=== PATIENT | male | born 1960 | race Caucasian/White ===

== ENCOUNTER 2018-09-29 08:48 | Inpatient (IN) | payer SELFPAY ==
[2018-09-29 09:09] LABS: #Eosinphils 0.1 thou/uL (0.0-0.7); #Lymphocytes 1.2 thou/uL (1.20-3.40); #Monocytes 0.5 thou/uL (0.11-0.59); #Neutrophils 9.5 thou/uL (1.40-6.50); %Basophils 0.4 % (0.0-1.0); %Eosinophils 1.2 % (0.0-10.0); %Lymphocytes 10.7 % (21.0-51.0); %Monocytes 4.4 % (0.0-10.0); %Neutrophils 83.4 % (42.0-75.0); Hemoglobin 14.9 g/dL (14.0-18.0); Mean Corpuscular Hemoglobin 30.8 pg (27.0-31.0); Mean Corpuscular Volume 96.2 fL (78.0-98.0); Mean Platelet Volume 8.3 fL (7.4-10.4); Platelet Count 152 thou/uL (130-400); RBC Distribution Width 12.5 % (11.5-14.5); Red Blood Cell (RBC) Count 4.83 mill/uL (4.70-6.10); White Blood Cell (WBC) Count 11.4 thou/uL (4.8-10.8)
[2018-09-29 09:19] LABS: PTT 25.9 SEC (22.9-36.1); Prothrombin Time 12.9 SEC (12.0-14.7)
--- NOTE | 2018-09-29 09:20 | CT ---
CT OF BRAIN PERFORMED WITHOUT CONTRAST ENHANCEMENT: HISTORY: Stroke alert. The patient fell to floor and was unable to get up. Weakness to the right side. FINDINGS: The ventricular and cisternal system is slightly prominent for age. There are no signs of intracereb ral hemorrhage or extraaxial fluid collections. Mastoid air cells and visualized sinuses are clear. IMPRESSION: 1. No acute intracranial abnormalities. 2. Findings were telephoned to Dr. Weeks at 0907 hours. CODE CR POS: ISRRAEL
[2018-09-29 09:34] LABS: ALT (SGPT) 105 U/L (8-55); AST (SGOT) 90 U/L (5-34); Albumin 4.6 g/dL (3.5-5.0); Alkaline Phosphatase 78 U/L (40-150); Anion Gap 14 mmol/L (10-20); BUN (Urea Nitrogen) 8 mg/dL (8.4-25.7); Bilirubin, Total 0.4 mg/dL (0.2-1.2); CK (CPK) 96 U/L (30-200); Calc. Creatinine Clearance 0 mL/min (70-130); Calcium 9.9 mg/dL (7.8-10.44); Carbon Dioxide 25 mmol/L (22-29); Chloride 105 mmol/L (98-107); Estimated GFR-MDRD 73; Globulin 3.9 g/dL (2.4-3.5); Glucose 140 mg/dL (70-105); Potassium 4.2 mmol/L (3.5-5.1); Protein, Total 8.5 g/dL (6.0-8.3); Sodium 140 mmol/L (136-145)
[2018-09-29] MEDS ORDERED: Aspirin Chewable 81 MG TAB ONE (12:20)
[2018-09-29] MEDS ORDERED: Bisacodyl 5 MG TAB PO PRN (13:27)
[2018-09-29] MEDS ORDERED: Labetalol HCl 100 MG/20 ML VIAL SLOW IVP PRN (13:27)
[2018-09-29] MEDS ORDERED: Eucerin (Mineral Oil/Petrolatum,White) 30 gm Jar TOP PRN (13:27)
[2018-09-29] MEDS ORDERED: HYDROcodone/Acetaminophen 5/325 mg Tablet PO PRN (13:27)
[2018-09-29] MEDS ORDERED: Zolpidem Tartrate 5 MG TAB PO PRN (13:27)
[2018-09-29] MEDS ORDERED: Diabetic Tussin 200 MG/10 ML UDCUP PO PRN (13:27)
[2018-09-29] MEDS ORDERED: Sodium Chloride 0.65% Nasal 44 ML BOT EA NARE PRN (13:27)
[2018-09-29] MEDS ORDERED: Senokot S 8.6-50 MG TAB PO PRN (13:27)
[2018-09-29] MEDS ORDERED: Ondansetron PF 4 MG/2 ML Vial IVP PRN (13:27)
[2018-09-29] MEDS ORDERED: Loperamide HCl 2 MG CAP PO PRN (13:27)
[2018-09-29] MEDS ORDERED: hydrALAZINE 20 MG/ML VIAL SLOW IVP PRN (13:27)
[2018-09-29] MEDS ORDERED: Cepastat Lozenges 1 LOZ PO PRN (13:27)
[2018-09-29] MEDS ORDERED: Acetaminophen 325 MG TAB PO PRN (13:27)
[2018-09-29] MEDS ORDERED: Artificial Tears 18 DROP/0.9 ML EA EYE PRN (13:27)
[2018-09-29] MEDS ORDERED: Calcium Carbonate 500 MG ChewTAB PO PRN (13:27)
[2018-09-29] MEDS ORDERED: Ondansetron ODT 4 MG TAB PO PRN (13:27)
[2018-09-29] MEDS ORDERED: Loratadine 10 MG TAB PO PRN (13:27)
[2018-09-29] MEDS ORDERED: Bisacodyl 10 MG SUPP PR PRN (13:27)
[2018-09-29] MEDS ORDERED: Lorazepam 1 MG TAB PO PRN ×2 (13:28→23:30)
--- NOTE | 2018-09-29 14:22 | HP ---
PRIMARY CARE PHYSICIAN: [facility] Call admission. REASON FOR ADMISSION: TIA. HISTORY OF PRESENT ILLNESS: A 58-year-old male, who has no significant past medical history other than tobacco abuse and alcohol abuse, who was brought to emergency room with complaint of acute onset of right upper and lower extremity weakness with dysarthria. It was rapidly resolved when paramedics was called from his home. Paramedics saw at that time, he was found with right upper and lower extremity weakness and dysarthria, but when he arrived to the emergency room, his symptoms completely resolved. In the emergency room, the patient had routine blood test, which showed abnormal LFT. Rest of blood test was unremarkable. His CT brain was negative for any acute intracranial process. The patient is being admitted to Stroke Floor for more evaluation. REVIEW OF SYSTEMS: CONSTITUTIONAL: Negative for weight loss or gain, ability to conduct usual activities. SKIN: Negative for rash, itching. EYES: Negative for double vision, pain. ENT/MOUTH: Negative for nose bleeding, neck stiffness, pain, tenderness. CARDIOVASCULAR: Negative for palpitations, dyspnea on exertion, orthopnea. RESPIRATORY: Negative for shortness of breath, wheezing, cough, hemoptysis, fever or night sweats. GASTROINTESTINAL: Negative for poor appetite, abdominal pain, heartburn, nausea, vomiting, constipation, or diarrhea. GENITOURINARY: Negative for urgency, frequency, dysuria, nocturia. MUSCULOSKELETAL: Negative for pain, swelling. NEUROLOGIC/PSYCHIATRIC: Negative for anxiety, depression. ALLERGY/IMMUNOLOGIC: Negative for skin rash, bleeding tendency. Please see my HPI for pertinent positive and negative. All other review of systems reviewed and negative except as mentioned in HPI. ALLERGIES: NO KNOWN DRUG ALLERGIES. CURRENT HOME MEDICATION: Aspirin 81 mg daily. SOCIAL HISTORY: The patient is smoking about two pack per day. He drinks 8 shots of whiskey every day. He lives at home with his brother and mother. FAMILY HISTORY: No strong family history of premature coronary artery disease, stroke, or cancer. PAST MEDICAL HISTORY: Tobacco abuse disorder and alcohol abuse disorder. PAST SURGICAL HISTORY: Reviewed and negative. PSYCHIATRIC HISTORY: Anxiety and depression. EMERGENCY ROOM COURSE: The patient is given aspirin. PHYSICAL EXAMINATION: VITAL SIGNS: On arrival, blood pressure 190/110, pulse 77, respiratory rate 18, temperature 98.5, saturation 98% on room air, and weight 78.8 kg. GENERAL: The patient is currently alert, awake, hypertensive. No obvious acute distress. HEENT: Head; normocephalic and atraumatic. Eyes; pupils are round and reactive to light. Extraocular muscle intact. ENT, oropharynx within normal limits. Moist mucous membranes. No oral lesion. No pharyngeal erythema. No exudate. NECK: Supple. No JVD. No thyromegaly. No carotid bruit. No jugular venous distention. LUNGS: Clear to auscultation without any rhonchi or rales. CARDIAC: S1 and S2 regular without any murmur. No gallop. No rub. ABDOMEN: Soft. Bowel sounds present. Nontender. Nondistended. No organomegaly. No mass. No suprapubic tenderness. BACK: Unremarkable. No CVA tenderness. EXTREMITIES: Upper extremities; passive movement of all joints is normal. Lower extremities, no edema. Good distal pulsation. SKIN: No skin rash. HEMATOLOGIC: No lymphadenopathy. PSYCHIATRIC: Normal affect. NEUROLOGIC: The patient is alert and oriented x3. Cranial nerves nerve 2 through 12 intact. Dysarthria noted. Motor 5/5 in all four limbs. Sensation bilaterally symmetrical. Reflexes bilaterally symmetrical. No cerebellar sign. SIGNIFICANT LABORATORY DATA: EKG showing normal sinus rhythm, within normal limit. CT brain showing no acute intracranial process. CBC; WBC 11.4, hemoglobin 14.9, platelet 152. INR 1.0. BMP; sodium 140, potassium 4.2, chloride 105, carbon dioxide 25, BUN 8, creatinine 1.05, glucose 140, calcium 9.9. Next, LFT; AST 90, ALT 105, alkaline phosphatase 78, albumin 4.6. Troponin 0.010. ASSESSMENT AND PLAN: 1. Acute transient ischemic attack. The patient had sudden onset of right upper and lower extremity weakness with dysarthria. His motor weakness completely resolved, but he still has dysarthric speech. CT brain is negative. The patient is not a candidate for any further intervention because of low deficit as well as time was not clear. At this point, the patient will be admitted to Stroke Floor. We will continue with aspirin 325 mg p.o. daily. We will start Lipitor 20 mg p.o. at bedtime. Upon discharge, we will consider starting antihypertensive medication. Currently, we will keep blood pressure on normal side. We will use p.r.n. basis blood pressure medication. We will check lipid profile tomorrow. We will do neuro check. Echocardiography, MRI brain, and carotid Doppler will be ordered for part of stroke workup. We will monitor on telemetry floor. We will also check urine drug screen. 2. Tobacco abuse disorder. Smoking cessation counseling given. Will use nicotine patch. 3. Alcohol abuse. Counseling given to avoid alcohol abuse. We will continue with folic acid, thiamine, vitamin B12 therapy while in hospital. We will watch for any withdrawal. We will use Ativan p.r.n. basis. 4. Abnormal LFTs, likely due to alcohol, but we will rule out hepatitis and we will check hepatitis profile tomorrow. 5. Hypertension without previous history of hypertension. We will start antihypertensive medication upon discharge. 6. Dysarthria. The patient will need speech evaluation. Deep venous thrombosis prophylaxis, SCD boots, no Lovenox because of we are expecting discharge soon. 7. Gastrointestinal prophylaxis, Pepcid 20 mg p.o. b.i.d. CODE STATUS: The patient is full code. The patient does not have any obvious surrogate decision maker. DISPOSITION PLAN: Based on clinical course, pending above-mentioned investigation result. Job ID: [id number]
[2018-09-29 16:48] VITALS: BMI 24.1
--- NOTE | 2018-09-29 17:42 | ULT ---
CAROTID ARTERIAL DOPPLER ULTRASOUND: 09/29/18 COMPARISON: None. HISTORY: Transient ischemic attack, assess for carotid artery disease. TECHNIQUE: Multiplanar reddy scale sonographic imaging of the arterial structures of the neck bilaterally with co minal flow and spectral analysis. FINDINGS: Antegrade blood flow and normal arterial waveforms are documented within the carotid and vertebral sy stem bilaterally. VESSEL Peak systolic velocity (cm/s) Right CCA 109/18 Right ICA 79/24 Right ECA 118/22 Left CCA 91/18 Left ICA 75/21 Left ECA 115/24 ICA/CCA ratio 0.7 on the right and 0.8 on the left. IMPRESSION: No hemodynamically significant stenosis on the basis of sonographic velocity criteria. POS: ISRRAEL
--- NOTE | 2018-09-29 18:26 | MRI ---
BRAIN MRI WITHOUT CONTRAST 09/29/18 COMPARISON: None. HISTORY: Right sided weakness and slurred speech, assess for stroke, possible TIA. TECHNIQUE: Axial CT imaging at 5 mm intervals from vertex through skull base without contrast. FINDINGS: Very subtle foci of increased signal intensity noted on the diffusion weighted imaging within the dior p and periventricular white matter of the left frontal lobe. Subtle increased signal on diffusion satnam ghted imaging noted within the superior aspect of the caudate head and putamen anteriorly on the left as well. Areas of decreased signal intensity on the ADC map are consistent with subtle areas of acut e infarction in these regions. The gradient echo imaging demonstrates no evidence for associated intr acranial hemorrhage. There are multiple subcentimeter foci of increased T2 and FLAIR signal within the periventricular, d eep, and subcortical white matter bilaterally, evidence of small vessel disease. Regional bone javier ow signal intensity appears within normal limits. There is no midline shift, mass effect, or ventric ular enlargement. Arterial flow voids at the axial level of the skull base appear grossly unremarkable on the T2 weight ed imaging. There is mild mucosal thickening of the frontal sinuses, anterior ethmoid air cells, maxi llary sinuses, and left mastoid air cells. IMPRESSION: Subtle foci of acute infarction on the left as detailed above. No associated hemorrhage, midline christiane ft or mass effect. There is evidence of small vessel disease as well. POS: ISRRAEL
[2018-09-29] MEDS: Nicotine 21 MG PATCH TD SCH (19:43)
[2018-09-29] MEDS: Famotidine 20 MG TAB PO SCH (20:50)
[2018-09-29] MEDS: Atorvastatin Calcium 20 MG TAB PO SCH (21:07)
[2018-09-29 21:14] LABS: Bilirubin Small (Negative); Blood, Urine Negative (Negative); Clarity CLEAR (Clear); Glucose, Urine (Dipstick) Negative (Negative); Leukocyte Negative (Negative); Nitrite Negative (Negative); Protein, Urine (Dipstick) Trace mg/dL (Neg-Trace); Specific Gravity, Urine 1.021 (1.002-1.036); pH, Urine 7.5 (5.0-9.0)
[2018-09-29 21:18] LABS: Bacteria/HPF None Seen HPF (None Seen); Hyaline Casts/LPF 0-3 HYALINE CAST LPF (0-3 Hyaline); RBC/HPF 0-3 HPF (0-3); Squamous Epithelial 0-3 HPF (0-3); WBC/HPF 0-3 HPF (0-3)
[2018-09-29 23:09] LABS: Amphetamine Not Detected (NotDetected); Barbiturates Screen Not Detected (NotDetected); Benzodiazepine Screen Not Detected (NotDetected); Cocaine Metabolite Screen Not Detected (NotDetected); Medtox Control Line Valid? VALID (VALID); Medtox Reader # READER 4; Methadone Not Detected (NotDetected); Methamphetamine Not Detected (NotDetected); Opiate Screen Not Detected (NotDetected); Oxycodone Screen Not Detected (NotDetected); Phencyclidine (PCP) Not Detected (NotDetected); THC/Cannabinoid Screen Not Detected (NotDetected); Tricyclic Screen Not Detected (NotDetected)
[2018-09-30 05:11] LABS: #Eosinphils 0.1 thou/uL (0.0-0.7); #Lymphocytes 1.9 thou/uL (1.20-3.40); #Monocytes 0.8 thou/uL (0.11-0.59); #Neutrophils 5.7 thou/uL (1.40-6.50); %Basophils 0.5 % (0.0-1.0); %Eosinophils 1.6 % (0.0-10.0); %Lymphocytes 22.3 % (21.0-51.0); %Monocytes 9.6 % (0.0-10.0); %Neutrophils 66.1 % (42.0-75.0); Hemoglobin 13.8 g/dL (14.0-18.0); Mean Corpuscular HGB CONC 33.3 g/dL (32.0-36.0); Mean Corpuscular Hemoglobin 32.4 pg (27.0-31.0); Mean Corpuscular Volume 97.2 fL (78.0-98.0); Mean Platelet Volume 8.8 fL (7.4-10.4); Platelet Count 128 thou/uL (130-400); RBC Distribution Width 12.6 % (11.5-14.5); Red Blood Cell (RBC) Count 4.27 mill/uL (4.70-6.10); White Blood Cell (WBC) Count 8.6 thou/uL (4.8-10.8)
[2018-09-30 05:35] LABS: ALT (SGPT) 79 U/L (8-55); AST (SGOT) 58 U/L (5-34); Albumin 4.1 g/dL (3.5-5.0); Alkaline Phosphatase 61 U/L (40-150); Anion Gap 14 mmol/L (10-20); BUN (Urea Nitrogen) 11 mg/dL (8.4-25.7); Bilirubin, Total 0.7 mg/dL (0.2-1.2); Calc. Creatinine Clearance 94 mL/min (70-130); Calcium 9.9 mg/dL (7.8-10.44); Carbon Dioxide 24 mmol/L (22-29); Cardiac Risk 2.4 (Less than 4.5); Chloride 103 mmol/L (98-107); Cholesterol 157 mg/dl (< 200 Desired); Estimated GFR-MDRD 81; Globulin 3.6 g/dL (2.4-3.5); Glucose 111 mg/dL (70-105); HDL Cholesterol 66 mg/dL (>60 Neg Risk); LDL Cholesterol, Calculated 81 mg/dL; Potassium 3.7 mmol/L (3.5-5.1); Protein, Total 7.7 g/dL (6.0-8.3); Sodium 137 mmol/L (136-145); Triglycerides 49 mg/dL (Less than 150)
[2018-09-30 05:49] LABS: HBCM Index 0.06 S/CO (0-0.79); HBSAg Index 0.21 S/CO (0-0.99); Hep A IgM AB Non-Reactive (NonReactive); Hep A IgM S/CO 0.13 S/CO (0-0.79); Hep B Surf Ag Non-Reactive S/CO (NonReactive); Hepatitis B Core IgM Abs Non-Reactive (NonReactive)
[2018-09-30 06:46] LABS: Hep C IgG Ab Reflex HepC Qnt (NonReactive)
[2018-09-30 06:47] LABS: Hep C Index 12.15 S/CO (0-0.79)
[2018-09-30] MEDS ORDERED: Folic Acid 1 MG TAB PO SCH (09:00)
[2018-09-30] MEDS: Cyanocobalamin (Vitamin B-12) 1,000 MCG TAB PO SCH (09:09)
[2018-09-30] MEDS: Aspirin 325 MG TAB PO SCH (09:09)
[2018-09-30] MEDS: Multivit, Therapeutic 1 TAB PO SCH (09:10)
[2018-09-30] MEDS: Folic Acid 1 MG TAB PO SCH (09:10)
[2018-09-30] MEDS: Famotidine 20 MG TAB PO SCH ×2 (09:10→23:10)
[2018-09-30] MEDS ORDERED: Lisinopril 5 MG TAB PO SCH (10:45)
[2018-09-30] MEDS ORDERED: Carvedilol 6.25 MG TAB PO SCH (10:45)
--- NOTE | 2018-09-30 10:48 | PDOC.PN ---
- Subjective Encounter Start Date: 09/30/18 Encounter Start Time: 07:15 -: old records requested/rev Patient seen and examined. No new complaints. No overnight events - Objective Resuscitation Status - Order Detail: 09/29/18 13:23 Resuscitation Status Routine Resuscitation Status: FULL: Full Resuscitation MAR Reviewed: Yes Vital Signs & Weight: Vital Signs (12 hours) Temp Pulse Pulse Pulse Resp BP BP 09/30/18 10:01 85 193/103 H 09/30/18 09:40 85 74 193/103 H 09/30/18 09:10 85 193/103 H 09/30/18 07:45 97.5 F L 71 16 09/30/18 04:46 98.0 F 83 16 09/30/18 00:00 171/92 H 09/29/18 23:28 98.2 F 90 12 BP BP Pulse Ox 09/30/18 10:01 09/30/18 09:40 192/104 H 09/30/18 09:10 09/30/18 07:45 190/91 H 99 09/30/18 04:46 174/104 H 98 09/30/18 00:00 09/29/18 23:28 171/92 H 99 Weight Weight 173 lb 5.76 oz I&O: 09/29/18 09/30/18 10/01/18 06:59 06:59 06:59 Intake Total 980 Balance 980 Result Diagrams: 09/30/18 04:29 09/30/18 04:29 EKG Reviewed by me: Yes (nsr) Phys Exam - Physical Examination Constitutional: NAD HEENT: PERRLA, moist MMs, sclera anicteric Neck: no JVD, supple Respiratory: no wheezing, no rales, no rhonchi Cardiovascular: RRR, no significant murmur, no rub Gastrointestinal: soft, non-tender, no distention, positive bowel sounds Musculoskeletal: no edema, pulses present Neurological: non-focal, normal sensation, moves all 4 limbs Lymphatic: no nodes Psychiatric: normal affect, A&O x 3 Skin: no rash, normal turgor Dx/Plan (1) Abnormal LFTs Code(s): R94.5 - ABNORMAL RESULTS OF LIVER FUNCTION STUDIES Status: Acute (2) Chronic hepatitis C Code(s): B18.2 - CHRONIC VIRAL HEPATITIS C Status: Acute (3) Hypertension Code(s): I10 - ESSENTIAL (PRIMARY) HYPERTENSION Status: Acute (4) TIA (transient ischemic attack) Code(s): G45.9 - TRANSIENT CEREBRAL ISCHEMIC ATTACK, UNSPECIFIED Status: Acute (5) Alcohol abuse Code(s): F10.10 - ALCOHOL ABUSE, UNCOMPLICATED Status: Chronic (6) Tobacco abuse Code(s): Z72.0 - TOBACCO USE Status: Chronic - Plan cont current plan of care * today MRI, echo * start coreg and lisnopril * medication reviewed as below * symptomatic treatment * he will follow up with pcp for his chronic hep c treatment referral . Review of Systems - Review of Systems ENT: negative: Ear Pain, Ear Discharge, Nose Pain, Nose Discharge, Nose Congestion, Mouth Pain, Mouth Swelling, Throat Pain, Throat Swelling, Other Respiratory: negative: Cough, Dry, Shortness of Breath, Hemoptysis, SOB with Excertion, Pleuritic Pain, Sputum, Wheezing Cardiovascular: negative: chest pain, palpitations, orthopnea, paroxysmal nocturnal dyspnea, edema, light headedness, other Gastrointestinal: negative: Nausea, Vomiting, Abdominal Pain, Diarrhea, Constipation, Melena, Hematochezia, Other Genitourinary: negative: Dysuria, Frequency, Incontinence, Hematuria, Retention , Other Musculoskeletal: negative: Neck Pain, Shoulder Pain, Arm Pain, Back Pain, Hand Pain, Leg Pain, Foot Pain, Other Skin: negative: Rash, Lesions, [place], Bruising, Other - Medications/Allergies Allergies/Adverse Reactions: Allergies Allergy/AdvReac Type Severity Reaction Status Date / Time No Known Drug Allergies Allergy Verified 09/29/18 15:23 Medications: Current Medications Acetaminophen (Tylenol) 650 mg PO Q4H PRN PRN Reason: Headache/Fever/Mild Pain (1-3) Hydrocodone Bitart/Acetaminophen (Accord 5/325) 1 tab PO Q4H PRN PRN Reason: Moderate Pain (4-6) Artificial Tears (Tears Naturale) 2 drop EA EYE PRN PRN PRN Reason: Dry Eyes Aspirin (Aspirin) 325 mg PO DAILY [facility] Last Admin: 09/30/18 09:09 Dose: 325 mg Atorvastatin Calcium (Lipitor) 20 mg PO HS [facility] Last Admin: 09/29/18 21:07 Dose: 20 mg Bisacodyl (Dulcolax) 10 mg PO DAILYPRN PRN PRN Reason: Constipation Bisacodyl (Dulcolax) 10 mg MO DAILYPRN PRN PRN Reason: Constipation Calcium Carbonate (Tums) 1,000 mg PO Q4H PRN PRN Reason: Heartburn or Indigestion Carvedilol (Coreg) 6.25 mg PO BID[facility] Carvedilol (Coreg) 6.25 mg PO NOW [facility] Cyanocobalamin (Vitamin B-12) 1,000 mcg PO DAILY [facility] Last Admin: 09/30/18 09:09 Dose: 1,000 mcg Famotidine (Pepcid) 20 mg PO BID [facility] Last Admin: 09/30/18 09:10 Dose: 20 mg Folic Acid (Folvite) 1 mg PO DAILY [facility] Last Admin: 09/30/18 09:10 Dose: 1 mg Guaifenesin (Robitussin Sf) 200 mg PO Q4H PRN PRN Reason: Cough Hydralazine HCl (Apresoline) 10 mg SLOW IVP Q4H PRN PRN Reason: SBP > 180 and HR < 70 Last Admin: 09/30/18 10:01 Dose: 10 mg Labetalol HCl (Normodyne) 20 mg SLOW IVP Q4H PRN PRN Reason: SBP > 180 and HR >/= 70 Last Admin: 09/30/18 09:10 Dose: 20 mg Lisinopril (Zestril) 5 mg PO BID [facility] Lisinopril (Zestril) 5 mg PO ONE [facility] Loperamide HCl (Imodium) 2 mg PO PRN PRN PRN Reason: Diarrhea/Loose Stools Loratadine (Claritin) 10 mg PO DAILYPRN PRN PRN Reason: Sinus Symptoms Lorazepam (Ativan) 1 mg PO Q4H PRN PRN Reason: Anxiety/Agitation Lorazepam (Ativan) 1 mg PO Q4H PRN PRN Reason: ASE >=9 Mineral Oil/White Petrolatum (Eucerin Cream) 0 gm TOP BIDPRN PRN PRN Reason: Dry Skin Multivitamins (Theragran) 1 tab PO DAILY [facility] Last Admin: 09/30/18 09:10 Dose: 1 tab Nicotine (Nicoderm Patch) 21 mg TD Q24HR [facility] Last Admin: 09/29/18 19:43 Dose: 21 mg Ondansetron HCl (Zofran Odt) 4 mg PO Q6H PRN PRN Reason: Nausea/Vomiting Ondansetron HCl (Zofran) 4 mg IVP Q6H PRN PRN Reason: Nausea/Vomiting Senna/Docusate Sodium (Senokot S) 2 tab PO BID PRN PRN Reason: Constipation Sodium Chloride ([place] Nasal [place] 0.65%) 0 ml EA NARE QIDPRN PRN PRN Reason: Nasal Congestion Sodium Chloride (Flush - Normal Saline) 10 ml IVF PRN PRN PRN Reason: Saline Flush Thiamine HCl (Thiamine) 100 mg PO DAILY [facility] Last Admin: 09/30/18 09:10 Dose: 100 mg Throat Lozenges (Cepastat Lozenges) 1 kirill PO Q2H PRN PRN Reason: Sore Throat Zolpidem Tartrate (Ambien) 5 mg PO HSPRN PRN PRN Reason: Insomnia
[2018-09-30] MEDS: Nicotine 21 MG PATCH TD SCH (16:47)
[2018-09-30] MEDS: Carvedilol 6.25 MG TAB PO SCH (16:47)
[2018-09-30] MEDS: Lisinopril 5 MG TAB PO SCH (23:10)
[2018-09-30] MEDS: Atorvastatin Calcium 20 MG TAB PO SCH (23:10)
[2018-10-01] MEDS: Carvedilol 6.25 MG TAB PO SCH (09:35)
[2018-10-01] MEDS: Famotidine 20 MG TAB PO SCH (09:35)
[2018-10-01] MEDS: Cyanocobalamin (Vitamin B-12) 1,000 MCG TAB PO SCH (09:35)
[2018-10-01] MEDS: Folic Acid 1 MG TAB PO SCH (09:35)
[2018-10-01] MEDS: Aspirin 325 MG TAB PO SCH (09:35)
[2018-10-01] MEDS: Multivit, Therapeutic 1 TAB PO SCH (09:36)
[2018-10-01] MEDS: Lisinopril 5 MG TAB PO SCH (09:36)
--- NOTE | 2018-10-01 10:48 | DIS ---
DATE OF ADMISSION: 09/29/2018 DATE OF DISCHARGE: 10/01/2018 PRIMARY CARE PHYSICIAN: [facility] Call admission. DISCHARGE DISPOSITION: Home. PRIMARY DISCHARGE DIAGNOSES: 1. Acute lacunar cerebrovascular accident and deep periventricular white matter in left frontal lobe. 2. Hepatitis C. 3. New onset hypertension. 4. Abnormal liver function tests due to chronic hepatitis C. 5. Alcohol abuse. SECONDARY DISCHARGE DIAGNOSES: Tobacco abuse, alcohol abuse. PRIMARY PROCEDURE/OPERATION: None. RADIOLOGICAL INVESTIGATION: CT brain negative for any acute process. MRI brain did show acute infarction in deep periventricular white matter and left frontal lobe. Carotid Doppler negative for any stenosis. Echocardiography was normal. SIGNIFICANT LABORATORY DATA: WBC 8.6, hemoglobin 13.8, platelet 128. INR 1.0. Sodium 137, potassium 3.7, BUN 11, creatinine 0.96, calcium 9.9. LFT; AST 58, ALT 79, alkaline phosphatase 61, albumin 4.1, LDL 81. Cardiac enzyme negative. Urinalysis unremarkable. Urine drug screen negative. Hepatitis C positive antibody. DISCHARGE MEDICATIONS: 1. Aspirin 81 mg daily. 2. Lipitor 20 mg p.o. at bedtime. 3. Coreg 6.25 mg p.o. b.i.d. 4. Vitamin B12 of 1000 mcg p.o. daily. 5. Folic acid 1 mg p.o. daily. 6. Thiamine 100 mg p.o. daily. 7. Multivitamin one tablet p.o. daily. 8. Lisinopril 5 mg p.o. b.i.d. CONTRAINDICATION: None. CODE STATUS: Full code. INPATIENT FREIGHT INSPECTOR: None. ALLERGIES: NO KNOWN DRUG ALLERGY. DISCHARGE PLAN: Post-hospital, the patient will follow up with primary care physician in 1 week. The patient will follow up with primary care physician for hepatitis followup and referral should be given to liver specialist for hepatitis C treatment. HOSPITAL COURSE: A 58-year-old male with above-mentioned medical problem, who was admitted by me on September 29, 2018. The patient came to emergency room with complaint of acute onset of right upper and lower extremity weakness and dysarthria that was improved when he arrived to our emergency room. He was not a tPA candidate. He had initial CT of brain, which was negative, but subsequently MRI did show left frontal deep periventricular white matter small infarction that was responsible for the patient's admitting symptoms. We did carotid Doppler, which was normal. Echocardiography is normal. We monitored on telemetry floor and it was normal. The patient did have an abnormal LFT, and he has alcohol abuse and that is why we provided counseling to avoid alcohol abuse. We also checked hepatitis profile and that showed to have hepatitis C antibody positive, but viral RNA is pending. If RNA is very high, then the patient will need a hepatitis C treatment that he will get through his primary care physician referral to his electric organ checker. During this admission, we noted that he has hypertension and that is why we started Coreg and lisinopril. He will follow up with primary care physician for further blood pressure management. Healthy lifestyle measure discussed with the patient. Smoking cessation counseling given. This patient is back to his normal. He is ambulatory and tolerating p.o. well. While in the hospital, initially he was kept as observation, but subsequently we changed to inpatient once we had a positive stroke on MRI, but he is doing excellent and that is why we are discharging him home. He does not need any rehab or any kind of extra support at home. The patient is seen and examined at bedside today. REVIEW OF SYSTEMS: All review of systems reviewed with him and negative. PHYSICAL EXAMINATION: VITAL SIGNS: Currently, temperature 99.0, pulse 75, respiratory rate 18, blood pressure 150/84, weight 173 pounds. GENERAL: The patient is currently alert, awake, in no obvious acute distress. HEENT: Head; normocephalic, atraumatic. Eyes; pupils round, reactive to light. Extraocular muscles intact. ENT; oropharynx within normal limits. Moist mucous membranes. No oral lesion. No pharyngeal erythema. No exudate. NECK: Supple. No JVD. No thyromegaly. No carotid bruit. LUNGS: Clear to auscultation without any rhonchi or rales. CARDIAC: S1 and S2 regular, without any murmur. ABDOMEN: Soft and benign without any tenderness. EXTREMITIES: No edema. NEUROLOGIC: Nonfocal examination. The patient is medically stable for discharge today. Job ID: [id number]
[2018-10-01 11:36] VITALS: BP 147/83; TEMP 97.8
[2018-10-01] MEDS: Nicotine 21 MG PATCH TD SCH (14:38)
[2018-10-01] MEDS ORDERED: Prevnar 13-Val Conj/PF 0.5 ML SYRINGE IM ONE (16:00)
[2018-10-02 15:09] LABS: HCV log10 6.666 (.); Hep C PCR-Quant 4630000 IU/mL (.)
== END 2018-10-01 14:46 | disposition home or self-care (01) | DRG 65 ==
LOC: ERS 08:48 → ERHOLD 11:54 → OBSVTOIN 11:54 → 2SE 15:55
PROVIDERS: ADMIT Internal Medicine; ATTEND Internal Medicine
DX: I63.81 Other cerebral infarction due to occlusion or stenosis of small artery (principal); G81.91 Hemiplegia, unspecified affecting right dominant side; R47.1 Dysarthria and anarthria; Z79.82 Long term (current) use of aspirin; F17.210 Nicotine dependence, cigarettes, uncomplicated; F10.10 Alcohol abuse, uncomplicated; B19.20 Unspecified viral hepatitis C without hepatic coma; B18.2 Chronic viral hepatitis C; R29.701 NIHSS score 1; I10 Essential (primary) hypertension
CPT/HCPCS: 36415; 36416; 70450; 70551; 80053; 80061; 80074; 80306; 81001; 82550; 84484; 85025; 85610; 85730; 87522; 90471; 90670; 90686; 90732; 93005; 93306; 93880; G0008; G0009; J0360